=== PATIENT | female | born 1955 | race African-American/Black ===

== ENCOUNTER 2020-07-12 12:57 | Emergency (ER) | payer OTHER ==
--- NOTE | ~2020-07-12 | EMS ---
[place] [address] EMS Patient Care Report Name: BARTOLO DEMARCO Room #: REG GRIS Muñoz#: [id number] Admission: 07/12/20 Attend Phys: Discharge: Date of : 55 Report #: [id number] THIS REPORT FOR: //name// Report Transmitted: 07/13/2020 07:46 EMS Care Summary [place], [place]/[facility] Incident [id number] @ 07/12/2020 12:19 Incident Location [id number] [place] [address] Patient BARTOLO DEMARCO Female, 65 Years 1955 Patient Address [id number] [place] [address] Patient History None Reported, Patient Allergies No known allergies, Patient Medications None Reported, Chief Complaint Unresponsive Disposition Transported Lights/[place] Dispatch Reason Unconscious/Fainting Transported To [facility] Narrative PT WAS FOUND UNRESPONSIVE IN A SMALL ROOM. PT WAS PULLED INTO THE LIVING ROOM WHERE A BETTER ASSESSMENT COULD BE DONE. PT WAS FOUND TO HAVE SLOW RESPIRATION AND NOT RESPONSIVE. PT'S FAMILY STATES THAT THEY LAST SAW THE PT THIS MOURNING AND WENT TO CHECK ON HER AND FOUND HER LIKE SHE WAS. PT'S FAMILY DENIES ANY [address] [address] EMS Patient Care Report Name: BARTOLO DEMARCO Room #: REG Wanda#: [id number] Admission: 07/12/20 Attend Phys: Discharge: Date of : 55 Report #: [id number] MEDICAL HISTORY. PT'S FAMILY REPORTS THAT PT DOES NO TAKE NARCOTICS. PT HAS NO OTHER COMPLAINTS. PT WAS FOUND UNRESPONSIVE ON THE FLOOR. BECAUSE OF THE TIGHT AREA TO WORK AND BECAUSE PT WAS FOUND BREATHING AND WITH A WEAK PULSE EMS MOVED PT TO THE AMBULANCE TO ATTEMPTED TO GET BETTER RESPIRATIONS AND STRONGER PULSES WHEN EMS WAS GETTING READY TO TAKE PT TO THE HOSPITAL EMS FOUND PT WENT TO CARDIAC ARREST. PT CPR WAS INITATED AND EMS INTUBATION WAS STARTED. PT HAD NO CHANGES IN ROUTE. PT HAD NO SIGNS OF STEMI ON 12 LEAD. PT HAS NO OTHER OBVIOUS ABNORMALITES. Initial Vitals @12:46P: 107,R: 9,EtCO2: 16,SpO2: 94, @12:55P: 124,R: 9,EtCO2: 20, @12:58P: 109,EtCO2: 6,SpO2: 65, @12:49P: 161,R: 12,EtCO2: 11, @12:43P: 40,R: 27,EtCO2: 14,SpO2: 74, @12:41P: 44, @12:48P: 138,R: 9,EtCO2: 8, @12:45P: 175,R: 10,EtCO2: 11, @12:44P: 106,R: 19,EtCO2: 7, @12:30P: 106,SpO2: 73, @12:40P: 87, @12:47P: 155,R: 16,EtCO2: 12,SpO2: 95, @12:51P: 107,EtCO2: 11,SpO2: 82, @12:57P: 170,R: 9,EtCO2: 24,SpO2: 39, @12:25P: 68,R: 12,Pain: 0/10,GCS: 3,Glucose: 119,SpO2: 84, @12:36P: 65,R: 10,BP: 106/55,GCS: 3,Revised Trauma: 8, @12:51P: 151,R: 3,EtCO2: 10,SpO2: 87, @12:28P: 74,BP: 100/68, @12:34P: 71,BP: 190/141, @12:53P: 181,EtCO2: 13, @12:53P: 211,R: 12,EtCO2: 14,SpO2: 81, Assessments @12:25MENTAL:Unresponsive,SKIN:Pale,Cyanotic,HEENT:Eyes: Left Pupil: 2-mm,Eyes: Right: Non-Reactive,Eyes: Right Pupil: 2-mm,Eyes: Left: Non-Reactive,LUNG SOUNDS:General: No Abnormalities,ABDOMEN:General: No Abnormalities,PELVIS//GI:EXTREMITIES:Capillary Refill: Right Upper: 4 Sec,Left Arm: No Abnormalities,Right Arm: No Abnormalities,Left Leg: No Abnormalities,Right Leg: No Abnormalities,PULSE:Radial: 1+ Thready,Carotid: 1+ Thready,NEURO:@12:40MENTAL:Unresponsive,SKIN:Pale,Cyanotic,HEENT:Eyes: Left Pupil: 2-mm,Eyes: Left: Non-Reactive,Eyes: Right Pupil: 2-mm,Eyes: Right: Non-Reactive,Head/Face: No Abnormalities,Neck/Airway: No Abnormalities,LUNG SOUNDS:General: No Abnormalities,ABDOMEN:General: No Abnormalities,PELVIS//GI:EXTREMITIES:Capillary Refill: Right Upper: > 5 [facility] [address] [place] [address] EMS Patient Care Report Name: BARTOLO DEMARCO Room #: REG [facility]#: [id number] Admission: 07/12/20 Attend Phys: Discharge: Date of : 55 Report #: [id number] Sec,Left Arm: No Abnormalities,Right Arm: No Abnormalities,Left Leg: No Abnormalities,Right Leg: No Abnormalities,PULSE:Radial: Absent,Carotid: Absent,NEURO: Impression Altered Mental Status Procedures @12:25ALS AssessmentResponse: UnchangedSucceeded@12:43Narcan - 2 Milligrams (mg) - IntranasalResponse: Unchanged@12:49Epinephrine 1:10 - 1 Milligrams (mg) - Intraosseous (IO)Response: Unchanged@12:4012-Lead ECGResponse: UnchangedSucceeded@12:45Response: UnchangedSucceeded@12:46Saline Lock 10cc (18 ga) Site: Hand-LeftResponse: UnchangedFailed@12:58Epinephrine 1:10 - 1 Milligrams (mg) - Intravenous (IV)Response: Unchanged@12:48Normal Saline (.9% NaCl) 100cc (EZ-IO (Yellow 45mm)) Site: PF-Bhgibbj-[id number]: UnchangedSucceeded@12:263-Lead ECGResponse: UnchangedSucceeded@12:26NPA Response: UnchangedSucceeded@12:26Oxygen FlowRate: 15 Device: Non Re-breather Mask (NRB) Response: UnchangedSucceeded@12:54Orotracheal Intubation Complications: None,Response: UnchangedSucceeded@12:53Epinephrine 1:10 - 1 Milligrams (mg) - Intravenous (IV)Response: Unchanged@12:37Oxygen FlowRate: 15 Device: Bag Valve Mask (BVM) Response: UnchangedSucceeded Timeline 12:17,Call Received 12:17,Dispatch Notified 12:19,Dispatched 12:20,En Route 12:24,On Scene 12:25,At Patient 12:25,ALS Assessment,Response: UnchangedSucceeded, 12:25,BP: / M,PULSE: 68,RR: 12 R,SPO2: 84 Ox,ETCO2: ,B,PAIN: 0,GCS: 3, 12:26,NPA Response: UnchangedSucceeded, 12:26,3-Lead ECG,Response: UnchangedSucceeded, 12:26,Oxygen FlowRate: 15 Device: Non Re-breather Mask (NRB) Response: UnchangedSucceeded, 12:28,BP: 100/68 M,PULSE: 74,RR: R,SPO2: Ox,ETCO2: ,BG: ,PAIN: ,GCS: , 12:30,BP: / M,PULSE: 106,RR: R,SPO2: 73 Ox,ETCO2: ,BG: ,PAIN: ,GCS: , 12:34,BP: 190/141 M,PULSE: 71,RR: R,SPO2: Ox,ETCO2: ,BG: ,PAIN: ,GCS: , 12:36,BP: 106/55 M,PULSE: 65,RR: 10 R,SPO2: Ox,ETCO2: ,BG: ,PAIN: ,GCS: 3, 12:37,Oxygen FlowRate: 15 Device: Bag Valve Mask (BVM) Response: UnchangedSucceeded, 12:40,12-Lead ECG,Response: UnchangedSucceeded, 12:40,BP: / M,PULSE: 87,RR: R,SPO2: Ox,ETCO2: ,BG: ,PAIN: ,GCS: , 12:41,BP: / M,PULSE: 44,RR: R,SPO2: Ox,ETCO2: ,BG: ,PAIN: ,GCS: , 12:43,Narcan - 2 Milligrams (mg) - Intranasal,Response: Unchanged 12:43,BP: / M,PULSE: 40,RR: 27 R,SPO2: 74 Ox,ETCO2: 14 ,BG: ,PAIN: ,GCS: , [facility] [address] [place] [address] EMS Patient Care Report Name: BARTOLO DEMARCO Room #: REG [facility]#: [id number] Admission: 07/12/20 Attend Phys: Discharge: Date of : 55 Report #: [id number] 12:44,BP: / M,PULSE: 106,RR: 19 R,SPO2: Ox,ETCO2: 7 ,BG: ,PAIN: ,GCS: , 12:45,Response: UnchangedSucceeded, 12:45,Depart Scene 12:45,BP: / M,PULSE: 175,RR: 10 R,SPO2: Ox,ETCO2: 11 ,BG: ,PAIN: ,GCS: , 12:46,Saline Lock 10cc 18 ga Site: Hand-Left,Response: UnchangedFailed, 12:46,BP: / M,PULSE: 107,RR: 9 R,SPO2: 94 Ox,ETCO2: 16 ,BG: ,PAIN: ,GCS: , 12:47,BP: / M,PULSE: 155,RR: 16 R,SPO2: 95 Ox,ETCO2: 12 ,BG: ,PAIN: ,GCS: , 12:48,Normal Saline (.9% NaCl) 100cc EZ-IO (Yellow 45mm) Site: FA-Ehfkybt-Otje,Response: UnchangedSucceeded, 12:48,BP: / M,PULSE: 138,RR: 9 R,SPO2: Ox,ETCO2: 8 ,BG: ,PAIN: ,GCS: , 12:49,Epinephrine 1:10 - 1 Milligrams (mg) - Intraosseous (IO),Response: Unchanged 12:49,BP: / M,PULSE: 161,RR: 12 R,SPO2: Ox,ETCO2: 11 ,BG: ,PAIN: ,GCS: , 12:51,BP: / M,PULSE: 151,RR: 3 R,SPO2: 87 Ox,ETCO2: 10 ,BG: ,PAIN: ,GCS: , 12:51,BP: / M,PULSE: 107,RR: R,SPO2: 82 Ox,ETCO2: 11 ,BG: ,PAIN: ,GCS: , 12:53,Epinephrine 1:10 - 1 Milligrams (mg) - Intravenous (IV),Response: Unchanged 12:53,BP: / M,PULSE: 211,RR: 12 R,SPO2: 81 Ox,ETCO2: 14 ,BG: ,PAIN: ,GCS: , 12:53,BP: / M,PULSE: 181,RR: R,SPO2: Ox,ETCO2: 13 ,BG: ,PAIN: ,GCS: , 12:54,Orotracheal Intubation Complications: None,,Response: UnchangedSucceeded, 12:54,At Destination 12:55,BP: / M,PULSE: 124,RR: 9 R,SPO2: Ox,ETCO2: 20 ,BG: ,PAIN: ,GCS: , 12:57,BP: / M,PULSE: 170,RR: 9 R,SPO2: 39 Ox,ETCO2: 24 ,BG: ,PAIN: ,GCS: , 12:58,Epinephrine 1:10 - 1 Milligrams (mg) - Intravenous (IV),Response: Unchanged 12:58,BP: / M,PULSE: 109,RR: R,SPO2: 65 Ox,ETCO2: 6 ,BG: ,PAIN: ,GCS: , 13:18,Call Closed Disclaimer v1.1 Copyright 2020 [employer] This EMS Care Summary contains data elements from the applicable legal record (which may be displayed differently). It is designed to provide pertinent information for the following purposes: continuity of care, clinical quality, and state data reporting. The complete legal record is available to ED staff and administrators of the receiving hospital in [facility]'s Patient Tracker. All data is provided "as is."
== END 2020-07-12 17:44 ==
LOC: ER 12:57
DX: I46.9 Cardiac arrest, cause unspecified (principal)